=== PATIENT | female | born 1965 | race Caucasian/White ===

== ENCOUNTER 2016-05-24 11:19 | Emergency (ER) | payer SELFPAY ==
[~2016-05-24] VITALS: Ht 165.1 cm; Wt 59.0 kg
[2016-05-24 12:42] LABS: BILIRUBIN,URINE NEGATIVE (NEG); GLUCOSE,URINE NEGATIVE (NEG); NITRITE,URINE NEGATIVE (NEG); PH,URINE 5.5; PROTEIN,URINE NEGATIVE (NEG-TRACE); UROBILINOGEN,URINE 0.2 mg/dL (0.2 mg/dL)
[2016-05-24 12:48] LABS: BARBITURATES NEG (NEG); BENZODIAZEPINES POS (NEG); CANNABINOIDS POS (NEG); COCAINE NEG (NEG); METHADONE NEG (NEG); OPIATES NEG (NEG); PHENCYCLIDINE NEG (NEG)
[2016-05-24 12:58] LABS: BACTERIA,URINE 0 /HPF (0-FEW); RBC,URINE RARE /HPF (0-2); SQUAMOUS EPITHELIAL CELL,UR FEW /LPF; WBC,URINE RARE /HPF (0-4)
--- NOTE | 2016-05-24 12:59 | RAD ---
Clinical Indication: Visual hallucinations. Technique: Study is dated May 24, 2016. CT images of the head were obtained from the skull base to the vertex without IV contrast. There are no comparison studies available. One or more of the following individualized dose reduction techniques were utilized for this examination: 1. Automated exposure control 2. Adjustment of the mA and/or kV according to patient size 3. Use of iterative reconstruction technique Findings: The ventricles are normal in size and configuration for age. There is minimal probable small vessel ischemic disease. There is no hemorrhage, extraaxial collection, mass, or midline shift. There is no large vascular distribution acute infarct. The posterior fossa and brainstem are unremarkable. Orbits are normal. Small retention cysts are noted in the sphenoid sinuses. There is no skull fracture appreciated on bone level images. Impression: No acute intracranial findings. Minimal probable small vessel ischemic disease.
[2016-05-24 13:04] LABS: BASO % 0 % (0-3); EOS % 2 % (0-3); HEMATOCRIT 40.1 % (36.0-47.0); HEMOGLOBIN 13.3 g/dL (12.0-15.5); LYMPH # 2.1 x10^3/uL (1.0-4.8); LYMPH % 21 % (24-48); MEAN CORPUSCULAR HEMOGLOBIN 31 pg (25-35); MEAN CORPUSCULAR HGB CONC 33 g/dL (31-37); MEAN CORPUSCULAR VOLUME 94 fL (79-100); MONO % 5 % (0-9); NEUT % 72 % (31-73); PLATELET COUNT 180 x10^3/uL (140-400); RED BLOOD COUNT 4.25 x10^6/uL (3.50-5.40); RED CELL DISTRIBUTION WIDTH 13.2 % (11.5-14.5); WHITE BLOOD COUNT 9.9 x10^3/uL (4.0-11.0)
[2016-05-24 13:07] LABS: CALCIUM 9.2 mg/dL (8.5-10.1); CREATININE 1.4 mg/dL (0.6-1.0); GFR 39.5; POTASSIUM 3.7 mmol/L (3.5-5.1)
[2016-05-24 13:14] LABS: ALBUMIN 4.2 g/dL (3.4-5.0); ALBUMIN/GLOBULIN RATIO 1.2 (1.0-1.7); TOTAL BILIRUBIN 0.2 mg/dL (0.2-1.0); TOTAL PROTEIN 7.7 g/dL (6.4-8.2)
[2016-05-24] MEDS ORDERED: IV NORMAL SALINE 1000ML BAG 1,000 ML IV ONE ×2 (13:15→13:45)
[2016-05-24] MEDS ORDERED: ALPRAZOLAM 0.5 MG TABLET PO ONE ×2 (13:30→15:45)
--- NOTE | 2016-05-24 13:31 | RAD ---
Indication: Altered mental status. Cough for 3 weeks. Hypertensive. Technique: Two-view chest radiograph was obtained. No comparison is available. Findings: The lungs are clear. The cardiopulmonary silhouette is within normal limits. There is no pleural effusion. The bony structures are intact. Impression: No acute thoracic findings.
[2016-05-24 14:35] VITALS: BP 82/52
--- NOTE | 2016-05-24 19:47 | ED.ADGEN ---
Past Medical History Past Medical History: Anxiety, Depression, Hypertension, Other Additional Past Medical Histor: Hepatitis C; trigger thumb Past Surgical History: , Tonsillectomy Alcohol Use: Rarely Drug Use: Marijuana Social History Narrative: denies today Adult General Chief Complaint Chief Complaint: HALLUCINATIONS AUDIBLE/VISUAL HPI HPI Patient is a 50 year old woman, history of depression, anxiety, who presents to the emergency department with a complaint of hallucinations which have been occurring intermittently over the past several weeks. Patient states that the hallucinations feel "like bad dreams". She states that she knows she is awake and they're occurring, and they typically involve a member of her family, or friends, with terrible events occurring. She states for instance that she believed she saw 2 of her good friends that shot in the head, and it was not until she spoke to her friends that she realized that she had a badge and this episode. She states that she then did realized that this was a hallucination, states that it feels "very real". Denies any auditory hallucinations, states that this occurred once 3 weeks ago, a few times a week afterwards, and she was seen by her primary care provider, who put her on Seroquel. She states she's been taking his medication without issue. She denies any other complaints, ingestions, exposures. Taking her Seroquel as directed for the past week. She also uses Xanax as needed for anxiety, 1 mg to 3 times daily. Review of Systems Review of Systems Constitutional: Denies fever or chills. [] Eyes: Denies change in visual acuity. [] HENT: Denies nasal congestion or sore throat. [] Respiratory: Denies cough or shortness of breath. [] Cardiovascular: Denies chest pain or edema. [] GI: Denies abdominal pain, nausea, vomiting, bloody stools or diarrhea. [] : Denies dysuria. [] Musculoskeletal: Denies back pain or joint pain. [] Integument: Denies rash. [] Neurologic: Denies headache, focal weakness or sensory changes. Visual hallucinations. Endocrine: Denies polyuria or polydipsia. [] Lymphatic: Denies swollen glands. [] Psychiatric: Denies depression or anxiety. [] Current Medications Current Medications Current Medications Medications (Trade) Dose Ordered Sig/Poppy Start Time Stop Time Status Last Admin Dose Admin Alprazolam (Xanax) 0.5 mg 1X ONCE 05/24/16 15:45 05/24/16 15:46 DC 05/24/16 15:53 0.5 MG Alprazolam 0.5 mg 0.5 mg 1X ONCE 05/24/16 13:30 05/24/16 13:31 DC 05/24/16 13:31 0.5 MG Sodium Chloride (Iv Sodium Chloride 0.9% 1000ml Bag) 1,000 ml @ 1,000 mls/hr 1X ONCE 05/24/16 13:45 05/24/16 14:44 DC 05/24/16 15:25 1,000 MLS/HR Allergies Allergies Allergies Coded Allergies Type Severity Reaction Last Updated Verified codeine Allergy Intermediate 05/29/15 Yes Physical Exam Physical Exam Constitutional: Well developed, well nourished, no acute distress, non-toxic appearance. [] HENT: Normocephalic, atraumatic, bilateral external ears normal, oropharynx moist, no oral exudates, nose normal. [] Eyes: PERRLA, EOMI, conjunctiva normal, no discharge. [] Neck: Normal range of motion, no tenderness, supple, no stridor. [] Cardiovascular:Heart rate regular rhythm, no murmur, S1, S2, no rubs or gallops. [] Lungs & Thorax: Bilateral breath sounds clear to auscultation, no wheezing, rhonchi, rales. No chest tenderness or crepitus. [] Abdomen: Bowel sounds normal, soft, no tenderness, no masses, no pulsatile masses. [] Skin: Warm, dry, no erythema, no rash. [] Back: No tenderness, no CVA tenderness. [] Extremities: No tenderness, no cyanosis, no clubbing, ROM intact, no edema. Negative Homans sign. [] Neurologic: Alert and oriented X 3, normal motor function, normal sensory function, no focal deficits noted. [] Psychologic: Affect normal, judgement normal, mood normal. [] Current Patient Data Vital Signs Vital Signs Date Time Temp Pulse Resp B/P Pulse Ox O2 Delivery O2 Flow Rate FiO2 05/24/16 14:35 111 82/52 05/24/16 14:00 18 Room Air 05/24/16 13:30 89 05/24/16 11:30 97.2 97.2 Lab Values Laboratory Tests Test 05/24/16 11:45 05/24/16 12:30 Urine Collection Type Unknown Urine Color Yellow Urine Clarity Clear Urine pH 5.5 Urine Specific [place] <=1.005 Urine Protein Negativemg/dL (NEG-TRACE) Urine Glucose (UA) Negativemg/dL (NEG) Urine Ketones (Stick) Negativemg/dL (NEG) Urine Blood Negative (NEG) Urine Nitrite Negative (NEG) Urine Bilirubin Negative (NEG) Urine Urobilinogen Dipstick 0.2mg/dL (0.2 mg/dL) Urine Leukocyte Esterase Negative (NEG) Urine RBC Rare/HPF (0-2) Urine WBC Rare/HPF (0-4) Urine Squamous Epithelial Cells Few/LPF Urine Bacteria 0/HPF (0-FEW) Urine Opiates Screen Neg (NEG) Urine Methadone Screen Neg (NEG) Urine Barbiturates Neg (NEG) Urine Phencyclidine Screen Neg (NEG) Urine Amphetamine/Methamphetamine Neg (NEG) Urine Benzodiazepines Screen Pos (NEG) Urine Cocaine Screen Neg (NEG) Urine Cannabinoids Screen Pos (NEG) Urine Ethyl Alcohol neg (NEG) White Blood Count 9.9x10^3/uL (4.0-11.0) Red Blood Count 4.25x10^6/uL (3.50-5.40) Hemoglobin 13.3g/dL (12.0-15.5) Hematocrit 40.1% (36.0-47.0) Mean Corpuscular Volume 94fL (79-100) Mean Corpuscular Hemoglobin 31pg (25-35) Mean Corpuscular Hemoglobin Concent 33g/dL (31-37) Red Cell Distribution Width 13.2% (11.5-14.5) Platelet Count 180x10^3/uL (140-400) Neutrophils (%) (Auto) 72% (31-73) Lymphocytes (%) (Auto) 21% (24-48) L Monocytes (%) (Auto) 5% (0-9) Eosinophils (%) (Auto) 2% (0-3) Basophils (%) (Auto) 0% (0-3) Neutrophils # (Auto) 7.2x10^3uL (1.8-7.7) Lymphocytes # (Auto) 2.1x10^3/uL (1.0-4.8) Monocytes # (Auto) 0.5x10^3/uL (0.0-1.1) Eosinophils # (Auto) 0.2x10^3/uL (0.0-0.7) Basophils # (Auto) 0.0x10^3/uL (0.0-0.2) Sodium Level 140mmol/L (136-145) Potassium Level 3.7mmol/L (3.5-5.1) Chloride Level 106mmol/L (98-107) Carbon Dioxide Level 25mmol/L (21-32) Anion Gap 9 (6-14) Blood Urea Nitrogen 29mg/dL (7-20) H Creatinine 1.4mg/dL (0.6-1.0) H Estimated GFR (Cockcroft-Gault) 39.5 BUN/Creatinine Ratio 21 (6-20) H Glucose Level 93mg/dL (70-99) Calcium Level 9.2mg/dL (8.5-10.1) Total Bilirubin 0.2mg/dL (0.2-1.0) Aspartate Amino Transferase (AST) 15U/L (15-37) Alanine Aminotransferase (ALT) 23U/L (14-59) Alkaline Phosphatase 57U/L (46-116) Total Protein 7.7g/dL (6.4-8.2) Albumin 4.2g/dL (3.4-5.0) Albumin/Globulin Ratio 1.2 (1.0-1.7) Thyroid Stimulating Hormone (TSH) 0.166uIU/mL (0.358-3.74) L Laboratory Tests 05/24/16 12:30 Laboratory Tests 05/24/16 12:30 EKG EKG EC: Sinus rhythm, heart rate 81 beats/minute, QTC 461, DE 176, QRS of 70 , no ST elevations or depressions, no dense of acute ST abnormalities. As interpreted by me. Radiology/Procedures Radiology/Procedures [] [facility] [address] [place] [address] IMAGING REPORT Signed PATIENT: VALERIO WILKES ACCOUNT: [id number] : 1965 LOCATION: ER AGE: 50 SEX: F EXAM STATUS: REG ER ORD. PHYSICIAN: LIZZ GARCIA DO REASON: visual hallucinations PROCEDURE: HEAD WO CONTRAST Clinical Indication: Visual hallucinations. Technique: Study is dated May 24, 2016. CT images of the head were obtained from the skull base to the vertex without IV contrast. There are no comparison studies available. One or more of the following individualized dose reduction techniques were utilized for this examination: 1. Automated exposure control 2. Adjustment of the mA and/or kV according to patient size 3. Use of iterative reconstruction technique Findings: The ventricles are normal in size and configuration for age. There is minimal probable small vessel ischemic disease. There is no hemorrhage, extraaxial collection, mass, or midline shift. There is no large vascular distribution acute infarct. The posterior fossa and brainstem are unremarkable. Orbits are normal. Small retention cysts are noted in the sphenoid sinuses. There is no skull fracture appreciated on bone level images. Impression: No acute intracranial findings. Minimal probable small vessel ischemic disease. DICTATED and SIGNED BY: AILEEN XIONG MD DATE: 05/24/16 1255 CC: KATELYNN MORRISON; LIZZ GARCIA DO ~ Impressions: [facility] [address] [place] [address] IMAGING REPORT Signed PATIENT: VALERIO WILKES ACCOUNT: [id number] : 1965 LOCATION: AGE: 50 SEX: F EXAM STATUS: REG ER ORD. PHYSICIAN: LIZZ GARCIA DO REASON: AMS PROCEDURE: CHEST PA & LATERAL Indication: Altered mental status. Cough for 3 weeks. Hypertensive. Technique: Two-view chest radiograph was obtained. No comparison is available. Findings: The lungs are clear. The cardiopulmonary silhouette is within normal limits. There is no pleural effusion. The bony structures are intact. Impression: No acute thoracic findings. DICTATED and SIGNED BY: AILEEN XIONG MD DATE: 05/24/16 1328 CC: KATELYNN MORRISON ERIN M DO ~ Course & Med Decision Making Course & Med Decision Making Pertinent Labs and Imaging studies reviewed. (See chart for details) Patient ate a 4 in the emergency department, called and cooperative with questioning. Describes these hallucinations in detail, states they're extremely upsetting. I discussed with patient that we will medically evaluate her in the emergency department, and that she will then will be available to speak with the psychiatric assessment team. Patient is denying any some suicidal homicidal ideation, any self injures behaviors. As stated she is exhibiting no concerning behaviors in the emergency department. Medical screening examination including a CT of the head did not reveal any evidence of acutely concerning findings. Patient discussed hallucinations and anxiety with Murali of the PAT team, patient did receive Xanax in the emergency department for anxiety as well. Patient was requesting admission to a psychiatric facility for additional assessment, however she does not meet criteria for admission for multiple facilities with which Murali did discuss potential admission. I discussed with patient and with Murali the patient is not exhibiting any concerning behaviors at this time, I believe that she is stable and appropriate for follow-up with her primary care provider which she states that she will accomplish. Patient states that she is not going to be admitted for psychiatric evaluation, she is willing to be discharged home and will follow-up with primary care provider, and continue to use Seroquel in the meantime. Patient does live with her sister , and states that she has a support of her son and ex- in addition to her sister. Patient discharged home in stable condition to continue her medications as directed, and to return to the ED for concerning symptoms as discussed, to follow-up with her PCP for additional evaluation and referral. Dragon Disclaimer Dragon Disclaimer This electronic medical record was generated, in whole or in part, using a voice recognition dictation system. Departure Impression: Primary Impression: Hallucinations Disposition: 01 HOME, SELF-CARE Condition: IMPROVED LIZZ GARCIA DO May 24, 2016 19:47
--- NOTE | 2016-05-25 06:09 | EKG ---
[facility] [address] [place] [address] Test Date: 2016-05-24 Test Time: 16:01:09 Pat Name: VALERIO WILKES Department: Room: Gender: F [employer] Man: : 1965 Requested By: LIZZ GARCIA Order Number: [id number] Reading MD: Danielle Avina Measurements Intervals [place] Rate: 81 P: 50 NM: 176 QRS: 44 QRSD: 78 T: 52 QT: 392 QTc: 461 Interpretive Statements SINUS RHYTHM. MISSING LEAD V 4. OTHERWISE NORMAL EKG. Electronically Signed On 05-26-2016 21:29:32 CDT by Danielle Avina
== END 2016-05-24 16:17 | disposition home or self-care (01) ==
LOC: ER 11:19
DX: R44.3 Hallucinations, unspecified (principal); F41.9 Anxiety disorder, unspecified; I10 Essential (primary) hypertension; F32.9 Major depressive disorder, single episode, unspecified; F12.10 Cannabis abuse, uncomplicated; Z86.19 Personal history of other infectious and parasitic diseases; Z88.5 Allergy status to narcotic agent
CPT/HCPCS: 36415; 70450; 71020; 80053; 81001; 84443; 85027; 93005; 96360; 99285; G0481; J7030